=== PATIENT | female | born 1950 | race Caucasian/White ===

== ENCOUNTER → 2017-06-01 | Outpatient (CLI) | payer BC ==
[~2017-06-01] MED LIST: ASPI81TA94 PO; CEFT1VIA57 IJ; CHON250C2 PO; GLUC100026 PO; GUAI1200 PO; LEVO-85 PO; METH125V13 IM; METH4TAB66 PO
--- NOTE | 2017-06-01 14:27 | RADIOLOGY IMAGING REPORT ---
FACILITY: [facility] PATIENT NAME: Carline Clifford : 1950 MR: [id number] V: [id number] EXAM DATE: ORDERING PHYSICIAN: IVELISSE CHAIDEZ TECHNOLOGIST: Location: [facility] Patient: Carline Clifford : 1950 Visit/Account:[id number] Date of Sevice: 06/01/2017 Exam type: CHEST PA AND LAT History: Cough x2 months, rhonchi Comparison: April 27, 2017. Findings: The lungs are free of acute effusions, infiltrates or edema. There is mild hyperinflation of the [place] however. The cardiac silhouette is normal in size. This mild spondylotic changes of the th oracic spine IMPRESSION: 1. Mild hyperinflation lung [place] although no evidence of acute pulmonary consolidation Report Dictated By: Rosi Claros MD at 06/01/2017 2:21 PM Report E-Signed By: Rosi Claros MD at 06/01/2017 2:23 PM WSN:MICH
== END ==
LOC: RAD 11:19
PROVIDERS: ATTEND Otolaryngology
DX: R91.8 Other nonspecific abnormal finding of lung field (principal)
CPT/HCPCS: 71046

== ENCOUNTER → 2017-07-23 | Outpatient (CLI) | payer BC | LOC: AUD 09:15 | PROVIDERS: ATTEND Otolaryngology | DX: H91.91 Unspecified hearing loss, right ear (principal) | CPT/HCPCS: 92557; 92567 ==

== ENCOUNTER → 2017-11-12 | Outpatient (CLI) | payer BC ==
[~2017-11-12] MED LIST changes: +BARIUM SULFATE 176 GM BTL PO ONE; +BARIUM SULFATE 340 GM POWD ONE; +FLUT16SP19 NS; +LORA1TAB69 PO; +MONT10TA PO; +TETR15DR9 OP
--- NOTE | 2017-11-12 14:43 | RADIOLOGY IMAGING REPORT ---
FACILITY: [facility] PATIENT NAME: Carline Clifford : 1950 MR: [id number] V: [id number] EXAM DATE: ORDERING PHYSICIAN: ELINA WOODSON TECHNOLOGIST: Location: [facility] Patient: Carline Clifford : 1950 Visit/Account:[id number] Date of Sevice: 11/12/2017 Esophagram Indication: Dysphasia. Pain in the mid chest when eating. Comparison: None available Findings: The thoracic esophagus was evaluated with barium air contrast technique. Effervescent crystals were administered to the patient followed by thick and thin barium solution wit hout difficulty. 13 mm barium tablet passes easily through esophagus into the gastric lumen. There is a normal swallowing mechanism with no evidence of aspiration. No evidence of gastroesophageal reflux during the examination. There is no focal stricture or mucosal abnormality of the esophagus. No visualized hiatal hernia. Dose area product: 393.50 uGym2 IMPRESSION: 1.Unremarkable esophagram Report Dictated By: Albin Martin MD at 11/12/2017 2:37 PM Report E-Signed By: Albin Martin MD at 11/12/2017 2:38 PM WSN:MICH
== END ==
LOC: RAD 13:45
PROVIDERS: ATTEND Physician Assistant Medical
DX: K59.00 Constipation, unspecified (principal)
CPT/HCPCS: 74220

== ENCOUNTER 2017-12-15 00:08 | Day surgery (SDC) | payer BC ==
[~2017-12-15] VITALS: Ht 139.7 cm; Wt 53.5 kg
[~2017-12-15 00:08] MED LIST changes: -BARIUM SULFATE 176 GM BTL PO ONE; -BARIUM SULFATE 340 GM POWD ONE; +NORMOSOL R SOLN(*) 1000 ML BAG 1,000 ML IV PRN; +OMEP-137 PO
[2017-12-15 06:37] VITALS: BP 137/69
[2017-12-15] MEDS ORDERED: PROPOFOL EMUL(*) 10MG/ML 20 ML 40 ML ONE (07:10)
[2017-12-15] MEDS ORDERED: PROPOFOL EMUL(*) 10MG/ML 20 ML 20 ML ONE (08:44)
[2017-12-15 08:54] VITALS: BP 94/41
[2017-12-15 09:00] VITALS: BP 76/45
--- NOTE | 2017-12-15 09:09 | Short(Outpt) Discharge Summary ---
Discharge Summary Reason for Hosp/Final Diag: (1) Colon cancer screening Status: Chronic Hospital Course & Plan: Colonoscopy with polypectomy x2 completed without problems. Departure Discharge to: Home, Self Care Discharge Instructions Home Meds Reported Medications Omeprazole (OMEPRAZOLE) 20 Mg Tablet.dr, 20 MG PO QDAY, TAB 12/10/17 Loratadine/Pseudoephedrine (CLARITIN-D 24 HOUR TABLET) 1 Each Tab.er.24h, 1 TAB PO QDAY 11/05/17 Aspirin (ASPIRIN) 81 Mg Tab.chew, 81 MG PO QDAY, TAB.CHEW TAKE 1 TABLET BY MOUTH EVERY DAY 10/26/14 Discontinued Reported Medications Tetrahydrozoline Hcl (EYE DROPS) 15 Ml Drops, 3 GTT OP QDAY 11/05/17 Fluticasone Prop 50 Mcg Ns (FLONASE 50 MCG NS) 16 Gm [place].susp, 2 SPRAYS NS QDAY, BOT 11/05/17 Montelukast Sodium (SINGULAIR) 10 Mg Tablet, 1 TAB PO QDAY, TAB 11/05/17 Diet: Regular Activity: As Tolerated Special Instructions: Your colonoscopy was completed without problems and your prep was excellent (Good Job!!). I removed 2 polyps from your colon and they were sent to pathology. My office will call you in the next week or so and let you know what the polyps are and when your next colonoscopy should be (either 5 or 10 years) depending on pathology results. SAMARIA LAINEZ MD Dec 15, 2017 09:09
[2017-12-15 09:15] VITALS: BP 88/66
[2017-12-15 09:25] VITALS: BP 105/58
[2017-12-15 09:30] VITALS: BP 110/83
[2017-12-15] MEDS ORDERED: LIDOCAINE/SOD BICARB 8.4% SYR ID ONE (13:00)
[2017-12-15] MEDS ORDERED: NORMOSOL R SOLN(*) 1000 ML BAG 1,000 ML IV PRN (13:00)
== END 2017-12-15 09:45 | disposition home or self-care (01) ==
LOC: OR 00:08
PROVIDERS: ATTEND Surgery
DX: Z12.11 Encounter for screening for malignant neoplasm of colon (principal); D12.0 Benign neoplasm of cecum; D12.4 Benign neoplasm of descending colon
CPT/HCPCS: 00811; 45385; 88305; J2704